=== PATIENT | female | born 1990 | race African-American/Black ===

== ENCOUNTER 2018-09-16 06:09 | Emergency (ER) | payer BC ==
[~2018-09-16] VITALS: Ht 154.9 cm; Wt 53.0 kg
[2018-09-16 06:42] VITALS: BP 120/76
[2018-09-16] MEDS ORDERED: IBUPROFEN 400MG TABLET PO ONE (08:00)
[2018-09-16] MEDS ORDERED: IBUPROFEN 100MG/5ML UDC PO SCH (08:15)
== END 2018-09-16 09:20 | disposition home or self-care (01) ==
LOC: ER 08:35
DX: S90.121A Contusion of right lesser toe(s) without damage to nail, initial encounter (principal); J45.909 Unspecified asthma, uncomplicated; W22.01XA Walked into wall, initial encounter; Y93.89 Activity, other specified; Y92.89 Other specified places as the place of occurrence of the external cause; Y99.8 Other external cause status
CPT/HCPCS: 73630; 81025; 99283